=== PATIENT | female | born 1995 | race African-American/Black ===

== ENCOUNTER 2017-05-01 04:50 | Emergency (ER) | payer OTHER ==
[~2017-05-01] VITALS: Ht 162.6 cm; Wt 64.9 kg
[2017-05-01] MEDS ORDERED: VALTREX1000 MG PO (05:07)
[2017-05-01 05:36] VITALS: BP 114/82
== END 2017-05-01 05:37 | disposition home or self-care (01) ==
LOC: EME 04:50
DX: B00.9 Herpesviral infection, unspecified (principal); R22.2 Localized swelling, mass and lump, trunk
CPT/HCPCS: 99281; 99284